=== PATIENT | female | born 1945 | race Caucasian/White ===

== ENCOUNTER 2019-09-18 21:23 | Emergency (ER) | payer OTHER ==
[~2019-09-18] VITALS: Ht 172.7 cm; Wt 87.7 kg
[2019-09-18] MEDS ORDERED: ONDANSETRON 2MG/ML, 2ML IVPush ONE (21:30)
[2019-09-18] MEDS ORDERED: MORPHINE SULFATE 4 MG/ML, 1ML IVPush PRN (21:30)
[2019-09-18] MEDS ORDERED: ONDANSETRON 2MG/ML, 2ML ONE (21:33)
[2019-09-18] MEDS ORDERED: MORPHINE SULFATE 4 MG/ML, 1ML ONE (21:33)
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
[2019-09-18] MEDS ORDERED: PROPOFOL 10 MG/ML, 20ML IVPush ONE (22:00)
[2019-09-18] MEDS ORDERED: PROPOFOL 10 MG/ML, 20ML ONE (22:05)
[2019-09-18 22:40] VITALS: BP 116/74
--- NOTE | 2019-09-18 22:42 | NUR ---
Pt recieved 100mg of diprivan IV, Pt tolerated reduction well and no complications during procedure. Pt has awaken well and speaking in full sentances.
--- NOTE | 2019-09-18 23:16 | NUR ---
Pt ambulating safely and no distress noted. Pt reports she feels well enough to go home with .
== END 2019-09-19 00:01 ==
LOC: ED 23:00
DX: S52.615A Nondisplaced fracture of left ulna styloid process, initial encounter for closed fracture (principal); S52.572A Other intraarticular fracture of lower end of left radius, initial encounter for closed fracture; Z20.828 Contact with and (suspected) exposure to other viral communicable diseases; W01.0XXA Fall on same level from slipping, tripping and stumbling without subsequent striking against object, initial encounter; Y93.89 Activity, other specified; Y92.89 Other specified places as the place of occurrence of the external cause; Y99.8 Other external cause status
CPT/HCPCS: 25605; 36415; 73070; 73100; 73110; 87635; 96374; 96375; 99152; 99153; 99285; J2270; J2405